=== PATIENT | female | born 1940 | race Caucasian/White ===

== ENCOUNTER 2017-05-31 08:35 | Emergency (ER) | payer OTHER ==
[~2017-05-31 08:35] MED LIST: CALCIUM CITRAT1 EAC9 PO; CALCIUM-VITAMI1 EACH PO; L-CARNITINE500 M1 PO; LORATADINE10 M2 PO; METHOTREXATE2.5 MG PO; SOY ISOFLAVONE; VENTOLIN HFA18 GM IH; folic acid; magnesium; multivitamins; vitamin e
[2017-05-31] MEDS ORDERED: CLEOCIN300 MG PO (08:56)
[2017-05-31 10:08] VITALS: BP 101/65
== END 2017-05-31 09:12 | disposition home or self-care (01) ==
LOC: EME 08:35
DX: H66.91 Otitis media, unspecified, right ear (principal); R51 Headache
CPT/HCPCS: 99281; 99282

== ENCOUNTER 2017-12-02 00:44 | Observation (INO) | payer OTHER ==
[~2017-12-02] VITALS: Ht 165.1 cm; Wt 91.0 kg
[~2017-12-02 00:44] MED LIST changes: +CLEOCIN300 MG PO
[2017-12-02 01:27] LABS: HEMATOCRIT 39.1 % (36.0-46.0); HEMOGLOBIN 13.1 G/DL (11.9-15.5); MCH 33.1 PG (29.0-34.0); MCHC 33.5 G/DL (30.0-36.0); MCV 98.7 FL (83-99); PLATELET COUNT 215 K/uL (156-360); RBC DIS.WIDTH-CV 13.8 % (11.8-14.6); RBC DIS.WIDTH-SD 50.5 % (39-53); RED BLOOD COUNT 3.96 M/uL (3.80-5.20); WHITE BLOOD COUNT 6.3 K/uL (4.1-10.2)
[2017-12-02 01:35] LABS: CHLORIDE 106 mEq/L (99-109); SODIUM 138 mEq/L (136-147)
[2017-12-02 01:36] LABS: GLUCOSE 111 mg/dL (70-99)
[2017-12-02 01:40] LABS: CREATININE 0.8 mg/dL (0.6-1.3); GFR ESTIMATE (CALCULATED) > 59 mL/min/
[2017-12-02 01:41] LABS: UREA NITROGEN (BUN) 20 mg/dL (9-23)
[2017-12-02 01:48] LABS: TROP-I INTERPRETATION NEGATIVE; TROPONIN-I < 0.01 ng/mL (0.0-0.30)
[2017-12-02] MEDS ORDERED: WELLBUTRIN SR100 MG PO (05:40)
[2017-12-02] MEDS ORDERED: XANAX0.25 MG PO (05:41)
[2017-12-02] MEDS ORDERED: AMBIEN5 MG PO (05:42)
[2017-12-02 09:04] LABS: CREATINE KINASE 105 IU/L (1-294); TOTAL CK 105 IU/L (1-294)
[2017-12-02 09:09] LABS: CK-MB 1.7 ng/mL (0.0-4.9); CKMB RELATIVE INDEX 1.6 (0.0-3.9)
[2017-12-02 09:51] LABS: HDL CHOLESTEROL 55 MG/DL (Desirable>=50); LDL CHOLESTEROL 136 mg/dL (Desirable<100); NON-HDL CHOLESTEROL 153 mg/dL (Desirable<160); TOTAL CHOLESTEROL 208 mg/dL (Desirable<200); TRIGLYCERIDES 87 MG/DL (Normal: <150)
[2017-12-02 13:20] LABS: TROP-I INTERPRETATION NEGATIVE; TROPONIN-I < 0.01 ng/mL (0.0-0.30)
[2017-12-02 14:45] VITALS: BP 126/60
[2017-12-02 18:18] LABS: TROP-I INTERPRETATION NEGATIVE; TROPONIN-I < 0.01 ng/mL (0.0-0.30)
[2017-12-02 19:09] VITALS: BP 125/62
[2017-12-02 23:16] VITALS: BP 118/58
[2017-12-03 03:55] VITALS: BP 120/60
[2017-12-03 05:57] LABS: ALBUMIN 3.6 G/DL (3.2-4.8); ALKALINE PHOSPHATASE 47 IU/L (3-129); ALT (GPT) 13 IU/L (3-49); AST (GOT) 13 IU/L (2-34); CHLORIDE 108 MEQ/L (99-109); CREATININE 0.8 MG/DL (0.6-1.3); GFR ESTIMATE (CALCULATED) > 59 mL/min/; GLUCOSE 103 mg/dL (70-99); SODIUM 142 MEQ/L (136-147); TOTAL BILIRUBIN 0.5 MG/DL (0.0-1.0); TOTAL PROTEIN 5.8 G/DL (6.4-8.3); UREA NITROGEN (BUN) 16 mg/dL (9-23)
[2017-12-03 07:36] VITALS: BP 139/66
[2017-12-03 11:33] VITALS: BP 115/62
[2017-12-03 15:39] VITALS: BP 102/65
[2017-12-03] MEDS ORDERED: ALPRAZOLAM0.25 M2 PO (17:49)
[2017-12-03] MEDS ORDERED: QUETIAPINE FUMA50 MG PO (17:49)
[2017-12-03] MEDS ORDERED: NICORELIEF2 MG BC (17:49)
== END 2017-12-03 20:15 ==
LOC: EME → EDBD 00:44 → EME 00:44 → EDOF 07:40 → 5WEST 07:40 → ENRESERV 07:45 → EDOF 08:25 → ENRESERV 12:06 → 5WEST 14:29
PROVIDERS: Internal Medicine
DX: R07.9 Chest pain, unspecified (principal); F32.9 Major depressive disorder, single episode, unspecified; G47.00 Insomnia, unspecified; Z86.19 Personal history of other infectious and parasitic diseases; M06.9 Rheumatoid arthritis, unspecified; Z79.899 Other long term (current) drug therapy; F41.9 Anxiety disorder, unspecified; Z72.0 Tobacco use; R94.31 Abnormal electrocardiogram [ECG] [EKG]; E78.5 Hyperlipidemia, unspecified; E66.01 Morbid (severe) obesity due to excess calories; Z68.33 Body mass index [BMI] 33.0-33.9, adult; Z83.3 Family history of diabetes mellitus; Z88.2 Allergy status to sulfonamides; Z88.1 Allergy status to other antibiotic agents
CPT/HCPCS: 70450; 71046; 80048; 80053; 80061; 82550 91; 82553; 83880; 84484; 85027; 85610; 93005; 94760; 99202; 99281; 99284; C9113; G0378; J1650; J8610

== ENCOUNTER 2017-12-03 19:41 | Inpatient (IN) | payer OTHER ==
[~2017-12-03 19:41] MED LIST changes: +ALPRAZOLAM0.25 M2 PO; +AMBIEN5 MG PO; +NICORELIEF2 MG BC; +QUETIAPINE FUMA50 MG PO; +WELLBUTRIN SR100 MG PO; +XANAX0.25 MG PO
[2017-12-04 07:39] VITALS: BP 117/58
[2017-12-04 15:16] VITALS: BP 113/56
[2017-12-05 07:34] VITALS: BP 108/59
[2017-12-05 15:16] VITALS: BP 127/71
[2017-12-06 07:34] VITALS: BP 119/65
[2017-12-06] MEDS ORDERED: BUPROPION XL150 MG PO (08:16)
[2017-12-06] MEDS ORDERED: MIRTAZAPINE15 MG PO (08:16)
[2017-12-06] MEDS ORDERED: CLONAZEPAM0.5 MG PO ×2 (08:16→08:21)
== END 2017-12-06 10:34 | disposition home or self-care (01) | DRG 885 ==
LOC: 1WEST 19:41 → ENRESERV 20:02 → 1WEST 20:16
DX: F32.1 Major depressive disorder, single episode, moderate (principal); F51.04 Psychophysiologic insomnia; G31.84 Mild cognitive impairment of uncertain or unknown etiology; E78.5 Hyperlipidemia, unspecified; M06.9 Rheumatoid arthritis, unspecified; B02.9 Zoster without complications; R07.9 Chest pain, unspecified; Z83.3 Family history of diabetes mellitus; G47.9 Sleep disorder, unspecified; F41.9 Anxiety disorder, unspecified
CPT/HCPCS: 97150 GO; 97165 GO

== ENCOUNTER 2018-06-01 09:29 | Emergency (ER) | payer OTHER ==
[~2018-06-01] VITALS: Ht 167.6 cm; Wt 90.1 kg
[~2018-06-01 09:29] MED LIST changes: +BUPROPION XL150 MG PO; +CLONAZEPAM0.5 MG PO; +MIRTAZAPINE15 MG PO
[2018-06-01 10:58] VITALS: BP 109/80
== END 2018-06-01 11:09 | disposition home or self-care (01) ==
LOC: EME 09:29
DX: F41.1 Generalized anxiety disorder (principal); M19.90 Unspecified osteoarthritis, unspecified site; F32.9 Major depressive disorder, single episode, unspecified; Z87.891 Personal history of nicotine dependence; Z88.0 Allergy status to penicillin; Z88.8 Allergy status to other drugs, medicaments and biological substances
CPT/HCPCS: 90839; 99281; 99285

== ENCOUNTER 2018-06-12 14:40 | Inpatient (IN) | payer OTHER ==
[~2018-06-12] VITALS: Ht 165.1 cm; Wt 74.8 kg
[~2018-06-12 14:40] MED LIST changes: -CALCIUM CITRAT1 EAC9 PO; +CALCIUM WITH V1 EAC2 PO
[2018-06-12 15:58] LABS: HEMATOCRIT 41.1 % (36.0-46.0); HEMOGLOBIN 13.9 G/DL (11.9-15.5); MCH 33.7 PG (29.0-34.0); MCHC 33.8 G/DL (30.0-36.0); MCV 99.5 FL (83-99); PLATELET COUNT 226 K/uL (156-360); RBC DIS.WIDTH-CV 13.3 % (11.8-14.6); RBC DIS.WIDTH-SD 48.7 % (39-53); RED BLOOD COUNT 4.13 M/uL (3.80-5.20); WHITE BLOOD COUNT 6.6 K/uL (4.1-10.2)
[2018-06-12 16:15] LABS: APPEARANCE CLEAR ((CLEAR)); BILIRUBIN NEGATIVE; BLOOD NEGATIVE; COLOR YELLOW ((YELLOW)); GLUCOSE (STRIP) NEGATIVE; KETONES NEGATIVE; LEUKOCYTES TRACE; NITRITE NEGATIVE; PROTEIN (STRIP) NEGATIVE; SPECIFIC GRAVITY 1.013 (1.000-1.030); UROBILINOGEN 0.2 MG/DL (0.2-1.0)
[2018-06-12 16:22] LABS: ALBUMIN 4.1 g/dL (3.2-4.8)
[2018-06-12 16:23] LABS: CHLORIDE 106 mEq/L (99-109); POTASSIUM 5.7 mEq/L (3.7-5.4); SODIUM 135 mEq/L (136-147)
[2018-06-12 16:25] LABS: GLUCOSE 141 mg/dL (70-99); TOTAL PROTEIN 7.6 g/dL (6.4-8.3)
[2018-06-12 16:26] LABS: BACTERIA NONE SEEN /HPF; EPITHELIAL CELLS NONE SEEN /HPF; MUCUS TRACE /LPF; RED BLOOD CELLS 0-5 /HPF (0-5); UCUL ADDED? YES
[2018-06-12 16:27] LABS: TOTAL BILIRUBIN 0.3 mg/dL (0.0-1.0)
[2018-06-12 16:28] LABS: ALKALINE PHOSPHATASE 68 IU/L (3-129)
[2018-06-12 16:29] LABS: GFR ESTIMATE (CALCULATED) 57 mL/min/
[2018-06-12 16:30] LABS: AST (GOT) 38 IU/L (2-34); UREA NITROGEN (BUN) 18 mg/dL (9-23)
[2018-06-12 16:31] LABS: ALT (GPT) 22 IU/L (3-49)
[2018-06-12] MEDS ORDERED: WELLBUTRIN XL150 MG PO (19:41)
[2018-06-12] MEDS ORDERED: ATIVAN0.5 MG PO (19:42)
[2018-06-12] MEDS ORDERED: AMBIEN10 MG PO (19:42)
[2018-06-12] MEDS ORDERED: FOLIC ACID1 MG PO (19:42)
[2018-06-12] MEDS ORDERED: SYNTHROID50 MCG PO (19:43)
[2018-06-12] MEDS ORDERED: MOBIC7.5 MG PO (19:43)
[2018-06-12] MEDS ORDERED: MEGA RED PO (19:43)
[2018-06-12] MEDS ORDERED: ALEVE220 MG PO (19:47)
[2018-06-12 21:56] VITALS: BP 114/71
[2018-06-13 07:24] LABS: HEMATOCRIT 38.7 % (36.0-46.0); HEMOGLOBIN 12.6 G/DL (11.9-15.5); MCHC 32.6 G/DL (30.0-36.0); MCV 101.3 FL (83-99); PLATELET COUNT 195 K/uL (156-360); RBC DIS.WIDTH-CV 13.7 % (11.8-14.6); RBC DIS.WIDTH-SD 50.8 % (39-53); RED BLOOD COUNT 3.82 M/uL (3.80-5.20); WHITE BLOOD COUNT 7.3 K/uL (4.1-10.2)
[2018-06-13 08:57] VITALS: BP 120/55
[2018-06-13] MEDS ORDERED: NORCO 5/3251 TABLET PO (11:32)
== END 2018-06-13 12:27 | disposition home or self-care (01) | DRG 184 ==
LOC: EME 14:40 → 3EAST 19:45 → EDOF 19:45 → ENRESERV 20:13 → CANRESERV 20:13 → ENRESERV 20:14 → 3EAST 21:49
PROVIDERS: Emergency Medicine; Surgery
DX: S22.20XA Unspecified fracture of sternum, initial encounter for closed fracture (principal); S22.41XA Multiple fractures of ribs, right side, initial encounter for closed fracture; J98.11 Atelectasis; F32.9 Major depressive disorder, single episode, unspecified; F41.9 Anxiety disorder, unspecified; V43.52XA Car driver injured in collision with other type car in traffic accident, initial encounter; Y92.410 Unspecified street and highway as the place of occurrence of the external cause; Z87.891 Personal history of nicotine dependence
CPT/HCPCS: 70450; 71046; 71260; 72125; 72129; 72132; 74177; 80053; 81003; 85027; 87086; J1170; J7120